=== PATIENT | male | born 1945 | race Hispanic/Latino ===

== ENCOUNTER 2018-09-18 13:48 | Emergency (ER) | payer OTHER, MEDICARE ==
[2018-09-18 13:57] VITALS: TEMP 100.3; O2SAT 98
[2018-09-18] MEDS ORDERED: Sodium Chloride 0.9% 1,000 ML IV SCH (14:45)
[2018-09-18 15:10] LABS: BASO % 0.4 % (0.0-2.0); EOS % 0.9 % (0.0-4.0); HEMOGLOBIN 8.9 g/dL (12.0-18.0); LYMPH # 0.4 K/uL (1.0-4.3); MEAN CELL VOLUME 70.6 fl (80.0-94.0); MEAN CORPUSCULAR HEMOGLOBIN 22.8 pg (27.0-31.0); MEAN CORPUSCULAR HGB CONC 32.4 g/dL (33.0-37.0); MEAN PLATELET VOLUME 10.6 fl (7.2-11.7); MONO # 0.4 K/uL (0.0-0.8); MONO % 10.1 % (0.0-10.0); NEUT # 3.2 K/uL (1.8-7.0); NEUT % 78.6 % (50.0-75.0); NRBC % 0.6 % (0.0-0.0); RBC 3.92 Mil/uL (4.40-5.90); RED CELL DISTRIBUTION WIDTH 18.8 % (11.5-14.5); WHITE BLOOD COUNT 4.1 K/uL (4.8-10.8)
[2018-09-18 15:18] LABS: ALB/GLOB RATIO 1.1 (1.0-2.1); ALBUMIN 3.7 g/dL (3.5-5.0); BLOOD UREA NITROGEN 24 mg/dl (9-20); CALCIUM 8.8 mg/dL (8.4-10.2); GFR NON-AFRICAN AMERICAN > 60
[2018-09-18 15:36] LABS: ALT/SGPT 50 U/L (21-72); AST/SGOT 80 U/L (17-59)
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
[2018-09-18 17:41] VITALS: BP 136/72; PULSE 74; RESP 20
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
--- NOTE | 2018-09-19 22:06 | CARD ---
APPROVED REPORT Date of service: 09/18/2018 EKG Measurement Heart [id number] <Conclusion> Normal sinus rhythm with sinus arrhythmia Left axis deviation Left ventricular hypertrophy with QRS widening Cannot rule out Septal infarct, age undetermined Abnormal ECG
== END 2018-09-18 18:09 | disposition home or self-care (01) ==
LOC: H.ER 13:48
DX: R42 Dizziness and giddiness (principal); E11.9 Type 2 diabetes mellitus without complications; F17.200 Nicotine dependence, unspecified, uncomplicated; I10 Essential (primary) hypertension; J44.9 Chronic obstructive pulmonary disease, unspecified; V43.52XA Car driver injured in collision with other type car in traffic accident, initial encounter; Y93.9 Activity, unspecified; Y92.89 Other specified places as the place of occurrence of the external cause
CPT/HCPCS: 70450; 80053; 82948; 84484; 85025; 93005; 99285; J7030

== ENCOUNTER 2018-09-21 00:19 | Inpatient (IN) | payer MEDICARE, SELFPAY ==
[2018-09-21] MEDS ORDERED: Iohexol 240 (50 ml) PO ONE (00:58)
[2018-09-21] MEDS ORDERED: Sodium Chloride 0.9% 1,000 ML IV STA (00:58)
--- NOTE | 2018-09-21 01:03 | ED PDOC ---
HPI: Abdomen Time Seen by Provider: 09/21/18 00:44 Chief Complaint (Nursing): Abdominal Pain Chief Complaint (Provider): diarrhea History Per: Patient History/Exam Limitations: no limitations Onset/Duration Of Symptoms: Days (4) Current Symptoms Are (Timing): Still Present Location Of Pain/Discomfort: LLQ, Suprapubic Quality Of Discomfort: Cramping Additional Complaint(s): 73 y/o male brought in by EMS for evaluation of persistent diarrhea x 4 days. Associated lower abdominal cramping. Patient states he has 7-10 watery bowel movements daily. Patient states he was evaluated in ED for same on Thursday and has not been feeling any better since. Patient also reports ongoing generalized weakness, fatigue, and dizziness; states he was recently diagnosed with Thalasemia anemia which required a blood transfusion 1 month ago. Denies headache, extremity numbness/weakness, vision changes, chest pain, shortness of breath, palpitations, urinary symptoms. Past Medical History Reviewed: Historical Data, Nursing Documentation, Vital Signs Vital Signs: Last Vital Signs Temp 99.1 F 09/21/18 00:36 Pulse 80 09/21/18 00:36 Resp 15 09/21/18 00:36 BP 152/80 H 09/21/18 00:36 Pulse Ox 95 09/21/18 00:36 - Medical History PMH: Anemia, CAD, COPD, Diabetes, HTN, Hypercholesterolemia Denies: HIV, Chronic Kidney Disease - Surgical History Surgical History: Appendectomy (2004), Coronary Stent - Family History Family History: States: Unknown Family Hx - Home Medications Home Medications: Ambulatory Orders Medication Instructions Recorded Folic Acid/Multivit-Min/Lutein 1 tab PO DAILY 08/21/16 [Multi-Vitamin Gummies] Simvastatin [Zocor] 20 mg PO HS 08/21/16 Sitagliptin Phos/Metformin HCl 1 tab PO BID 08/21/16 [Janumet 50-1,000 mg Tablet] Tamsulosin [Flomax] 0.4 mg PO DAILY 08/21/16 Umeclidinium Brm/Vilanterol Tr 1 puff IH DAILY 08/21/16 [Anoro Ellipta 62.5-25 Mcg INH] Ursodiol [Keon Forte] 500 mg PO HS 08/21/16 Insulin Glargine, Recombina 30 unit SC HS #1 unit 01/16/17 [Lantus] Insulin Lispro [Humalog (Insulin 10 unit SC BID #1 cartridge 01/16/17 Lispro)] Lisinopril [Prinivil] 20 mg PO DAILY #30 tablet 01/16/17 Aspirin 325 mg PO PRN PRN 09/21/18 Folic Acid 1 mg PO DAILY 09/21/18 Omeprazole 40 mg PO DAILY 09/21/18 - Allergies Allergies/Adverse Reactions: Allergies Allergy/AdvReac Type Severity Reaction Status Date / Time No Known Allergies Allergy Verified 09/21/18 00:43 Review of Systems ROS Statement: Except As Marked, All Systems Reviewed And Found Negative Gastrointestinal: Positive for: Abdominal Pain, Diarrhea Neurological: Positive for: Dizziness Physical Exam - Reviewed Nursing Documentation Reviewed: Yes Vital Signs Reviewed: Yes - Physical Exam Appears: Positive for: Well, Non-toxic, No Acute Distress Head Exam: Positive for: ATRAUMATIC, NORMAL INSPECTION, NORMOCEPHALIC Skin: Positive for: Normal Color Eye Exam: Positive for: Normal appearance ENT: Positive for: Normal ENT Inspection Cardiovascular/Chest: Positive for: Regular Rate, Rhythm Respiratory: Positive for: Normal Breath Sounds Gastrointestinal/Abdominal: Positive for: Normal Exam Back: Positive for: Normal Inspection Extremity: Positive for: Normal ROM Neurologic/Psych: Positive for: Alert, Oriented (x3) - Laboratory Results Result Diagrams: 09/21/18 02:00 09/21/18 02:00 - ECG ECG: Positive for: Viewed By Me (reviewed by ED attending) ECG Rhythm: Positive for: Sinus Rhythm O2 Sat by Pulse Oximetry: 95 - Progress ED Course And Treament: -cbc -cmp -urinalysis -CT abd/pelvis -IV NS bolus -PO bentyl CT SCAN OF THE ABDOMEN AND PELVIS WITH CONTRAST. CLINICAL HISTORY: Abdominal pain. TECHNIQUE: Multiple axial and coronal CT images were obtained through the abdomen and pelvis after administration of intravenous contrast material. COMPARISON: 08/17/2018. COMMENTS: Bilateral basilar subsegmental atelectatic pulmonary changes. Mild sliding hiatal hernia. Diffuse irregularity of the hepatic contour suggestive of chronic parenchymal liver disease, unchanged. Distended gallbladder. Mild ascites, unchanged. Bilateral fat containing inguinal hernias without incarceration. Left renal simple cysts are noted the largest measuring 2.6 cm. Interval appearance of diffuse thickening of the colon. Findings are suggestive of uncomplicated colitis. No perforators or pneumatosis coli. This was not present on prior exam. There is no intra or extrahepatic biliary ductal dilatation. The spleen is normal. The gallbladder is within normal limits. The pancreas is of normal contour and attenuation characteristics. There is no evidence of adrenal mass. Both kidneys demonstrate prompt and equal nephrograms. The kidneys are normal in size, shape and configuration. There is no evidence of renal or ureteral mass. No renal or ureteral calculi are identified. There is no hydroureter or hyd ronephrosis. No evidence for appendicitis. No evidence for small or large bowel obstruction. There is no evidence of intrinsic or extrinsic bladder mass. Images of the lung bases show no evidence of pleural or parenchymal mass. There are no pleural effusions. The bony structures are free of lytic or blastic lesions. IMPRESSION: Bilateral basilar subsegmental atelectatic pulmonary changes. Mild sliding hiatal hernia. Diffuse irregularity of the hepatic contour suggestive of chronic parenchymal liver disease, unchanged. Distended gallbladder. Mild ascites, unchanged. Bilateral fat containing inguinal hernias without incarceration. Left renal simple cysts are noted the largest measuring 2.6 cm. Interval appearance of diffuse thickening of the colon. Findings are suggestive of uncomplicated colitis. No perforators or pneumatosis coli. This was not present on prior exam. Thank you for your kind referral of this patient. Patient with multiple episodes of diarrhea in ED IV cipro, IV flagyl ordered Case discussed with Dr. Tompkins, hospitalist on-call, for admission Disposition - Clinical Impression Clinical Impression: Dehydration, Colitis - Patient ED Disposition Is Patient to be Admitted: Yes - Disposition Disposition Time: 05:37 Condition: FAIR
[2018-09-21] MEDS ORDERED: Iohexol 240 (50 ml) ONE (01:41)
[2018-09-21 02:27] LABS: BASO % 0.5 % (0.0-2.0); EOS % 0.6 % (0.0-4.0); HEMOGLOBIN 8.6 g/dL (12.0-18.0); LYMPH # 0.7 K/uL (1.0-4.3); LYMPH % 13.1 % (20.0-40.0); MEAN CELL VOLUME 70.6 fl (80.0-94.0); MEAN CORPUSCULAR HEMOGLOBIN 23.2 pg (27.0-31.0); MEAN CORPUSCULAR HGB CONC 32.8 g/dL (33.0-37.0); MEAN PLATELET VOLUME 9.6 fl (7.2-11.7); MONO # 1.1 K/uL (0.0-0.8); MONO % 19.2 % (0.0-10.0); NEUT # 3.8 K/uL (1.8-7.0); NEUT % 66.6 % (50.0-75.0); NRBC % 0.6 % (0.0-0.0); RBC 3.69 Mil/uL (4.40-5.90); RED CELL DISTRIBUTION WIDTH 17.7 % (11.5-14.5); WHITE BLOOD COUNT 5.6 K/uL (4.8-10.8)
[2018-09-21 02:34] LABS: ALB/GLOB RATIO 1.2 (1.0-2.1); ALBUMIN 3.7 g/dL (3.5-5.0); ALT/SGPT 49 U/L (21-72); AST/SGOT 52 U/L (17-59); BLOOD UREA NITROGEN 17 mg/dl (9-20); GFR NON-AFRICAN AMERICAN > 60
[2018-09-21] MEDS ORDERED: Iohexol 300 100 ML IJ ONE (03:32)
[2018-09-21] MEDS ORDERED: Sodium Chloride 0.9% 50 ML IV ONE (03:33)
[2018-09-21] MEDS ORDERED: metroNIDAZOLE 500mg/100ml NS 100 ML IV STA (05:06)
[2018-09-21] MEDS ORDERED: Ciprofloxacin 400mg/200ml D5W 400 MG/200 ML BAG IV STA (05:06)
[2018-09-21] MEDS ORDERED: metroNIDAZOLE 500mg/100ml NS 100 ML IVPB ONE (05:25)
--- NOTE | 2018-09-21 06:03 | CP.PCM.HP ---
<Sultan Tera - Last Filed: 09/21/18 07:00> History of Present Illness - History of Present Illness History of Present Illness: CC: Diarrhea HPI: 73 year old male with pmhx of DMII, CAD, HTN, HLD and Thalassemia presents to [facility] with complaints of 9-10 episodes of watery diarrhea associated with lower abdominal cramp since 09/17/18. Denies seeing any blood or mucus in stool. Patient reports he ate reheated sausage on Thursday and contributing his diarrhea to the food. Patient does reports feeling tired , weak and dizzy. Denies nausea, vomiting, fever, chills, , dysuria, chest pain or dyspnea. Denies any recent abx use. Denies any recent trip outside of the country or sick con tact. Of note, patient was recently diagnosed with Thalassemia and has blood transfusion about a month ago. PMD: Dr. Siegel PMHx: CAD, HTN, DM, HLD, BPH PSHx: Coronary artery stent, Appendectomy in 2004 Family hx: Thalasemia and Diabetes in brothers Social hx: Quit drinking 20 years ago, denies, smoking and recreational drug use Medications: reviewed Allergy: NKDA. Present on Admission - Present on Admission Any Indicators Present on Admission: No Review of Systems - Review of Systems Review of Systems: All 12 systems reviewed and negative except as mentioned in HPI Past Patient History - Infectious Disease Hx of Infectious Diseases: None - Past Medical History & Family History Past Medical History?: Yes - Past Social History Smoking Status: Former Smoker - CARDIAC Hx Hypercholesterolemia: Yes Hx Hypertension: Yes - PULMONARY Hx Chronic Obstructive Pulmonary Disease (COPD): Yes - NEUROLOGICAL Hx Neurological Disorder: Yes - HEENT Hx HEENT Problems: No - RENAL Hx Chronic Kidney Disease: No - ENDOCRINE/METABOLIC Hx Endocrine Disorders: Yes Hx Diabetes Mellitus Type 2: Yes - HEMATOLOGICAL/ONCOLOGICAL Hx Anemia: Yes Hx Human Immunodeficiency Virus (HIV): No - INTEGUMENTARY Hx Dermatological Problems: No - MUSCULOSKELETAL/RHEUMATOLOGICAL Hx Falls: No - GASTROINTESTINAL Hx Gastrointestinal Disorders: Yes Hx Fatty Liver Disease: Yes Hx Gastritis: Yes - GENITOURINARY/GYNECOLOGICAL Hx Genitourinary Disorders: Yes Hx Prostate Problems: Yes - PSYCHIATRIC Hx Substance Use: No - SURGICAL HISTORY Hx Appendectomy: Yes (2004) Hx Coronary Stent: Yes - ANESTHESIA Hx Anesthesia: Yes Hx Anesthesia Reactions: No Hx Malignant Hyperthermia: No Meds Allergies/Adverse Reactions: Allergies Allergy/AdvReac Type Severity Reaction Status Date / Time No Known Allergies Allergy Verified 09/21/18 00:43 Physical Exam - Constitutional Appears: No Acute Distress, Unkempt - Head Exam Head Exam: ATRAUMATIC, NORMAL INSPECTION, NORMOCEPHALIC - Eye Exam Eye Exam: EOMI, Normal appearance, PERRL - ENT Exam ENT Exam: Mucous Membranes Dry - Neck Exam Neck exam: Positive for: Full Rom, Normal Inspection. Negative for: Meningismus - Respiratory Exam Respiratory Exam: Clear to Auscultation Bilateral, NORMAL BREATHING PATTERN. absent: Rhonchi, Wheezes - Cardiovascular Exam Cardiovascular Exam: REGULAR RHYTHM, RRR, +S1, +S2 - GI/Abdominal Exam GI & Abdominal Exam: Normal Bowel Sounds, Soft. absent: Guarding, Rebound, Rigid, Tenderness - Extremities Exam Extremities exam: Positive for: normal inspection, pedal pulses present. Negative for: calf tenderness - Back Exam Back exam: absent: CVA tenderness (L), CVA tenderness (R) - Neurological Exam Neurological exam: Alert, CN II-XII Intact, Oriented x3 - Psychiatric Exam Psychiatric exam: Normal Affect, Normal Mood - Skin Skin Exam: Dry, Normal Color, Warm Results - Vital Signs Recent Vital Signs: Last Vital Signs Temp 99.1 F 09/21/18 04:07 Pulse 81 09/21/18 04:07 Resp 18 09/21/18 04:07 BP 130/73 09/21/18 04:07 Pulse Ox 95 09/21/18 05:40 - Labs Result Diagrams: 09/21/18 02:00 09/21/18 02:00 Labs: Laboratory Results - last 24 hr 09/21/18 09/21/18 09/21/18 01:22 02:00 02:00 WBC 5.6 RBC 3.69 L Hgb 8.6 L Hct 26.1 L MCV 70.6 L MCH 23.2 L MCHC 32.8 L RDW 17.7 H Plt Count 174 MPV 9.6 Neut % (Auto) 66.6 Lymph % (Auto) 13.1 L [place] % (Auto) 19.2 H Eos % (Auto) 0.6 Baso % (Auto) 0.5 Neut # (Auto) 3.8 Lymph # (Auto) 0.7 L [place] # (Auto) 1.1 H Eos # (Auto) 0.0 Baso # (Auto) 0.0 Sodium 136 Potassium 3.6 Chloride 106 Carbon Dioxide 18 L Anion Gap 16 BUN 17 Creatinine 0.9 Est GFR ( Amer) > 60 Est GFR (Non-Af Amer) > 60 POC Glucose (mg/dL) 116 H Random Glucose 99 Calcium 9.0 Total Bilirubin 2.1 H AST 52 ALT 49 Alkaline Phosphatase 81 Total Protein 6.8 Albumin 3.7 Globulin 3.1 Albumin/Globulin Ratio 1.2 Assessment & Plan - Assessment and Plan (Free Text) Assessment: 73 year old male with pmhx of DMII, CAD, HTN, HLD and Thalassemia presents to [facility] with complaints of 9-10 episodes of non-bloody watery diarrhe associated with lower abdominal cramp since 09/17/18. CT of abdomen and pelvis shows mild colitis. Patient is admitted for colitis, dehydration and acute gastroenteritis. Acute gastroenteritis with colitis -Stable vitals, afebrile -wbc 5.6 -CT of abdomen and pelvis: Interval appearance of diffuse thickening of the colon. Findings are suggestive of uncomplicated colitis. No perforators or pneumatosis coli. -Received 1 L bolus IV NS -s/p IV Cipro and Flagyl in ED -NPO -c/w Cipro and Flagyl -IV fluids D5 1/2 NS with KCl 20 meq @125 cc/hr -f/u labs Hx Thalassemia -H&H 8.6/26.1 -f/u CBC Diabetes Mellitus type II -Hold medications Hypertension -c/w Lisinopril 20 mg qd BPH -c/w Flomax 0.4mg PO HS Hyperlipedemia -c/w Simvastatin 20 mg PO HS DVT prophylaxis -Lovenox 40 SC daily Code Status -Full code Plan d/w with Dr. Turner Haley, [id number] <Markel Tompkins - Last Filed: 09/21/18 12:33> Results - Vital Signs Recent Vital Signs: Last Vital Signs Temp 97.8 F 09/21/18 09:40 Pulse 72 09/21/18 09:40 Resp 17 09/21/18 09:40 BP 146/68 09/21/18 09:40 Pulse Ox 96 09/21/18 09:40 - Labs Result Diagrams: 09/21/18 02:00 09/21/18 02:00 Labs: Laboratory Results - last 24 hr 09/21/18 09/21/18 09/21/18 01:22 02:00 02:00 WBC 5.6 RBC 3.69 L Hgb 8.6 L Hct 26.1 L MCV 70.6 L MCH 23.2 L MCHC 32.8 L RDW 17.7 H Plt Count 174 MPV 9.6 Neut % (Auto) 66.6 Lymph % (Auto) 13.1 L [place] % (Auto) 19.2 H Eos % (Auto) 0.6 Baso % (Auto) 0.5 Neut # (Auto) 3.8 Lymph # (Auto) 0.7 L [place] # (Auto) 1.1 H Eos # (Auto) 0.0 Baso # (Auto) 0.0 Sodium 136 Potassium 3.6 Chloride 106 Carbon Dioxide 18 L Anion Gap 16 BUN 17 Creatinine 0.9 Est GFR ( Amer) > 60 Est GFR (Non-Af Amer) > 60 POC Glucose (mg/dL) 116 H Random Glucose 99 Calcium 9.0 Total Bilirubin 2.1 H AST 52 ALT 49 Alkaline Phosphatase 81 Total Protein 6.8 Albumin 3.7 Globulin 3.1 Albumin/Globulin Ratio 1.2 C. difficile Ag & Toxin 09/21/18 09:32 WBC RBC Hgb Hct MCV MCH MCHC RDW Plt Count MPV Neut % (Auto) Lymph % (Auto) [place] % (Auto) Eos % (Auto) Baso % (Auto) Neut # (Auto) Lymph # (Auto) [place] # (Auto) Eos # (Auto) Baso # (Auto) Sodium Potassium Chloride Carbon Dioxide Anion Gap BUN Creatinine Est GFR ( Amer) Est GFR (Non-Af Amer) POC Glucose (mg/dL) Random Glucose Calcium Total Bilirubin AST ALT Alkaline Phosphatase Total Protein Albumin Globulin Albumin/Globulin Ratio C. difficile Ag & Toxin Negative Attending/Attestation - Attestation I have personally seen and examined this patient.: Yes I have fully participated in the care of the patient.: Yes I have reviewed all pertinent clinical information: Yes Notes (Text): 09/21/18 12:12 I saw, examined and discussed this patient with Dr Haley. I agree with the assessment and plan as outlined above. This is a 73 years old male who comes with 4 days of diarrhea with crampy abdominal pains. he reports 9-10 bowel movement daily and in the ED he had approximately 10 bowel movements. The C. difficile toxins and antigen are negative. The CT abdomen showed uncomplicated colitis. Stool culture is pending. We will treat the patient for Colitis with diarrhea and Dehydration. He was started IV Fluids, Flagyl and Ciprofloxacin. Follow hemoglobin and transfuse if less than 7gm. treat hypertension and Diabe nathan. Hold Metformin because of recent use of CT dye Markel Tompkins MD
[2018-09-21] MEDS ORDERED: Potassium Ch 20mEq in D5-1/2NS 1,000 ML IV SCH (06:15)
[2018-09-21] MEDS: Potassium Chl 20 mEq in D5-NS 1,000 ML IV SCH ×4 (07:04→22:45)
[2018-09-21] MEDS ORDERED: Ciprofloxacin 400mg/200ml D5W 400 MG/200 ML BAG IVPB ONE (07:04)
--- NOTE | 2018-09-21 07:57 | CARD ---
APPROVED REPORT Date of service: 09/21/2018 EKG Measurement Heart [id number] <Conclusion> Sinus rhythm with marked sinus arrhythmia Left axis deviation Left ventricular hypertrophy with QRS widening and repolarization abnormality Abnormal ECG
[2018-09-21] MEDS: metroNIDAZOLE 500mg/100ml NS 100 ML IVPB SCH ×2 (08:58→16:29)
[2018-09-21] MEDS: Ciprofloxacin 400mg/200ml D5W 400 MG/200 ML BAG IVPB SCH ×2 (08:58→22:07)
[2018-09-21] MEDS ORDERED: Patient's Own Med (Umeclidinium Brm/Vilanterol Tr [Anoro Ellipta 62.5-25 Mcg Inh] 1 PUFF) IH SCH (09:00)
[2018-09-21] MEDS: Insulin Lispro (humaLOG) 100 Units/ml Inj SC SCH ×4 (10:41→22:09)
[2018-09-21] MEDS: Pantoprazole 40 mg EC Tab PO SCH (12:12)
[2018-09-21] MEDS: Enoxaparin 40 mg Syringe SC SCH (12:12)
[2018-09-21] MEDS: Saccharomyces Boulardi 250 mg Cap PO SCH ×2 (12:13→16:29)
--- NOTE | 2018-09-21 12:54 | RAD ---
Date of service: 09/21/2018 HISTORY: admit COMPARISON: 01/12/2017 FINDINGS: LUNGS: No active pulmonary disease. PLEURA: No significant pleural effusion identified, no pneumothorax apparent. CARDIOVASCULAR: No atherosclerotic calcification present No radiographic findings to suggest acute or significant cardiovascular disease. OSSEOUS STRUCTURES: No significant abnormalities. VISUALIZED UPPER ABDOMEN: Normal. OTHER FINDINGS: None. IMPRESSION: No active disease. No significant interval change compared to the prior examination(s).
--- NOTE | 2018-09-21 14:30 | CT ---
Date of service: 09/21/2018 PROCEDURE: CT Abdomen and Pelvis with contrast HISTORY: abd pain, diarrhea COMPARISON: 08/17/2018 TECHNIQUE: Intravenous contrast dose: 95 cc Omnipaque 300 Radiation dose: Total exam DLP = 691.41 mGy-cm. This CT exam was performed using one or more of the following dose reduction techniques: Automated exposure control, adjustment of the mA and/or kV according to patient size, and/or use of iterative reconstruction technique. FINDINGS: LOWER THORAX: Unremarkable. LIVER: Hepatomegaly. Cirrhotic appearing liver without focal abnormality. Patent portal venous system is satisfactorily visualized without evidence portal vein thrombosis. Dilated portal veins in the abdomen and in particular left upper quadrant suggest portal venous hypertension. GALLBLADDER AND BILE DUCTS: Markedly distended gallbladder without visible gallstones. PANCREAS: Unremarkable. No gross lesion or ductal dilatation. SPLEEN: Stable splenomegaly. Orthogonal measurements on coronal series 7 0.5 x 19.2 cm. ADRENALS: Unremarkable. No mass. KIDNEYS AND URETERS: Unremarkable. No hydronephrosis. No solid mass. Stable simple cysts left kidney VASCULATURE: Atherosclerotic calcification and mural plaque present. Findings are seen throughout the aorta BOWEL: Severe and acute lane colitis. APPENDIX: No abnormalities to suggest acute appendicitis. No right lower quadrant inflammatory processes identified. PERITONEUM: Low volume abdominal and pelvic ascites. Fluid also tracks into the right inguinal canal. No free air. LYMPH NODES: Unremarkable. No enlarged lymph nodes. BLADDER: Unremarkable. REPRODUCTIVE: Unremarkable. BONES: No acute fracture. OTHER FINDINGS: Left inguinal hernia larger than right containing fat and mesentery associated with the adjacent sigmoid colon. IMPRESSION: Acute pain colitis. Stable hepatosplenomegaly, cirrhotic findings. Low volume ascites is stable. Markedly distended gallbladder without gallstones. Concordant results (preliminary interpretation) provided by [employer]. Procedure Completed: 03:54. Preliminary Report: Dictated and Authenticated: Five 02:00. Final Interpretation: 14:25.
[2018-09-21 15:08] LABS: URINE CLARITY SLIGHT-CLOUDY (Clear); URINE COLOR YELLOW (YELLOW); URINE GLUCOSE (UA) NEGATIVE (Normal)
[2018-09-21 15:09] LABS: URINE BILIRUBIN NEGATIVE (NEGATIVE); URINE BLOOD SMALL (NEGATIVE); URINE LEUKOCYTE ESTERASE NEGATIVE Leu/uL (Negative); URINE PROTEIN NEGATIVE (NEGATIVE); URINE UROBILINOGEN 0.2-1.0 mg/dL (0.2-1.0)
[2018-09-21] MEDS ORDERED: Insulin Detemir 100 Units/ml Inj SC SCH (22:00)
[2018-09-22] MEDS: metroNIDAZOLE 500mg/100ml NS 100 ML IVPB SCH ×3 (00:57→16:14)
[2018-09-22 06:25] LABS: HEMOGLOBIN 8.2 g/dL (12.0-18.0); MEAN CORPUSCULAR HEMOGLOBIN 22.9 pg (27.0-31.0); MEAN CORPUSCULAR HGB CONC 33.7 g/dL (33.0-37.0); RBC 3.56 Mil/uL (4.40-5.90); RED CELL DISTRIBUTION WIDTH 17.9 % (11.5-14.5); WHITE BLOOD COUNT 6.2 K/uL (4.8-10.8)
[2018-09-22 06:52] LABS: ALB/GLOB RATIO 1.1 (1.0-2.1); ALBUMIN 3.1 g/dL (3.5-5.0); ALT/SGPT 44 U/L (21-72); AST/SGOT 45 U/L (17-59); BLOOD UREA NITROGEN 10 mg/dl (9-20); CALCIUM 8.4 mg/dL (8.4-10.2); GFR NON-AFRICAN AMERICAN > 60
[2018-09-22] MEDS ORDERED: Potassium Chloride 20 mEq ER Tab PO ONE (07:52)
[2018-09-22] MEDS: Ciprofloxacin 400mg/200ml D5W 400 MG/200 ML BAG IVPB SCH ×2 (08:20→21:13)
[2018-09-22] MEDS: Pantoprazole 40 mg EC Tab PO SCH (08:21)
[2018-09-22] MEDS: Saccharomyces Boulardi 250 mg Cap PO SCH ×2 (08:21→16:15)
[2018-09-22] MEDS: Enoxaparin 40 mg Syringe SC SCH (08:21)
[2018-09-22] MEDS: Insulin Lispro (humaLOG) 100 Units/ml Inj SC SCH ×4 (08:22→22:00)
--- NOTE | 2018-09-22 09:51 | CP.PCM.PN ---
<Duran Alicea - Last Filed: 09/22/18 12:46> Subjective - Date & Time of Evaluation Date of Evaluation: 09/22/18 Time of Evaluation: 08:15 - Subjective Subjective: Pt seen and examined at bedside. Tolerating clear liquid diet. reports hunger. Reports less stools and more forming. Denies acute overnight events. Objective - Vital Signs/Intake and Output Vital Signs (last 24 hours): Temp Pulse Resp BP Pulse Ox 98.4 F 67 20 126/71 98 09/22/18 09:00 09/22/18 09:00 09/22/18 09:00 09/22/18 09:00 09/22/18 09:00 - Medications Medications: Current Medications Acetaminophen (Tylenol 325mg Tab) 650 mg PO Q6 PRN PRN Reason: Pain, moderate (4-7) Atorvastatin Calcium (Lipitor) 10 mg PO [facility] Last Admin: 09/21/18 22:08 Dose: 10 mg Dicyclomine HCl (Bentyl) 20 mg PO QID [facility] Last Admin: 09/22/18 08:22 Dose: 20 mg Enoxaparin Sodium (Lovenox) 40 mg SC DAILY [facility]; Protocol Last Admin: 09/22/18 08:21 Dose: 40 mg Folic Acid (Folic Acid) 1 mg PO DAILY [facility] Last Admin: 09/22/18 08:22 Dose: 1 mg Home Med (Umeclidinium Brm/Vilanterol Tr [Anoro Ellipta 62.5-25 Mcg Inh]) 1 puff IH DAILY [facility] Home Med (Ursodiol [Keon Forte]) 500 mg PO [facility] Last Admin: 09/21/18 22:08 Dose: 500 mg Ciprofloxacin (Cipro 400mg/200ml Dsw) 400 mg in 200 mls @ 200 mls/hr IVPB Q12 [facility]; Protocol Last Admin: 09/22/18 08:20 Dose: 200 mls/hr Metronidazole (Flagyl 500mg/100ml Ns) 100 mls @ 100 mls/hr IVPB Q8 [facility]; Protocol Last Admin: 09/22/18 08:20 Dose: 100 mls/hr Insulin Human Lispro (Humalog) 0 units SC ACHS [facility]; Protocol Last Admin: 09/22/18 08:22 Dose: Not Given Lisinopril (Zestril) 20 mg PO DAILY [facility] Last Admin: 09/22/18 08:21 Dose: 20 mg Pantoprazole Sodium (Protonix Ec Tab) 40 mg PO DAILY [facility] Last Admin: 09/22/18 08:21 Dose: 40 mg Saccharomyces Boulardii (Florastor) 250 mg PO BID [facility] Last Admin: 09/22/18 08:21 Dose: 250 mg Tamsulosin HCl (Flomax) 0.4 mg PO DAILY [facility] Last Admin: 09/22/18 08:21 Dose: 0.4 mg - Labs Labs: 09/22/18 05:45 09/22/18 05:45 - Constitutional Appears: Well, No Acute Distress - Eye Exam Eye Exam: EOMI - ENT Exam ENT Exam: Mucous Membranes Moist - Neck Exam Neck Exam: Full ROM - Respiratory Exam Respiratory Exam: Clear to Ausculation Bilateral, NORMAL BREATHING PATTERN. absent: Wheezes - Cardiovascular Exam Cardiovascular Exam: REGULAR RHYTHM, +S1, +S2 - GI/Abdominal Exam GI & Abdominal Exam: Soft, Normal Bowel Sounds. absent: Tenderness - Neurological Exam Neurological Exam: Alert, Awake, CN II-XII Intact, Oriented x3 - Psychiatric Exam Psychiatric exam: Normal Affect, Normal Mood Assessment and Plan - Assessment and Plan (Free Text) Assessment: 73 year old male with pmhx of DMII, CAD, HTN, HLD and Thalassemia presented to [facility] with complaints of 9-10 episodes of non-bloody watery diarrhea associated with lower abdominal cramp since 09/17/18. CT of abdomen and pelvis shows mild colitis. Patient is admitted for colitis, dehydration and acute gastroenteritis. Plan: Acute gastroenteritis with colitis -Stable vitals, afebrile -wbc 6.2 -CT of abdomen and pelvis: Interval appearance of diffuse thickening of the colon. Findings are suggestive of uncomplicated colitis. No perforators or pneumatosis coli. -Stool: c. diff: negative x2; leuk: negative; -Received 1 L bolus IV NS and D5 1/2 NS with KCl 20 meq @125 cc/hr -c/w Cipro and Flagyl -Pt experiencing less stools, however, more formed -Will start trial of imodium -Clear liquid advanced to bland, soft diet -f/u labs, Stool culture, O &P Hx Thalassemia -H&H 8.6/26.1 > 8.2/24.2 -f/u CBC Diabetes Mellitus type II -Will consider restarting meds if patient tolerates diet Hypertension -c/w Lisinopril 20 mg qd BPH -c/w Flomax 0.4mg PO HS Hyperlipedemia -c/w Simvastatin 20 mg PO HS DVT prophylaxis -Lovenox 40 SC daily PT/OT: -eval and treat Code Status -Full code Plan d/w with Dr. Turner Alicea MD PGY2 <Ranjana Salazar - Last Filed: 09/22/18 17:43> Objective - Vital Signs/Intake and Output Vital Signs (last 24 hours): Temp Pulse Resp BP Pulse Ox 97.8 F 69 18 103/53 L 98 09/22/18 16:27 09/22/18 16:27 09/22/18 16:27 09/22/18 16:27 09/22/18 16:27 - Medications Medications: Current Medications Acetaminophen (Tylenol 325mg Tab) 650 mg PO Q6 PRN PRN Reason: Pain, moderate (4-7) Atorvastatin Calcium (Lipitor) 10 mg PO HS [facility] Last Admin: 09/21/18 22:08 Dose: 10 mg Dicyclomine HCl (Bentyl) 20 mg PO QID [facility] Last Admin: 09/22/18 16:15 Dose: 20 mg Enoxaparin Sodium (Lovenox) 40 mg SC DAILY [facility]; Protocol Last Admin: 09/22/18 08:21 Dose: 40 mg Folic Acid (Folic Acid) 1 mg PO DAILY [facility] Last Admin: 09/22/18 08:22 Dose: 1 mg Home Med (Umeclidinium Brm/Vilanterol Tr [Anoro Ellipta 62.5-25 Mcg Inh]) 1 puff IH DAILY [facility] Home Med (Ursodiol [Keon Forte]) 500 mg PO HS [facility] Last Admin: 09/21/18 22:08 Dose: 500 mg Ciprofloxacin (Cipro 400mg/200ml Dsw) 400 mg in 200 mls @ 200 mls/hr IVPB Q12 [facility]; Protocol Last Admin: 09/22/18 08:20 Dose: 200 mls/hr Metronidazole (Flagyl 500mg/100ml Ns) 100 mls @ 100 mls/hr IVPB Q8 [facility]; Protocol Last Admin: 09/22/18 16:14 Dose: 100 mls/hr Insulin Detemir (Levemir) 10 units SC [facility] Insulin Human Lispro (Humalog) 0 units SC [facility]; Protocol Last Admin: 09/22/18 16:15 Dose: 2 unit Lisinopril (Zestril) 20 mg PO DAILY [facility] Last Admin: 09/22/18 08:21 Dose: 20 mg Loperamide HCl (Imodium) 2 mg PO Q6 PRN PRN Reason: Diarrhea Last Admin: 09/22/18 16:14 Dose: 2 mg Pantoprazole Sodium (Protonix Ec Tab) 40 mg PO DAILY [facility] Last Admin: 09/22/18 08:21 Dose: 40 mg Saccharomyces Boulardii (Florastor) 250 mg PO BID [facility] Last Admin: 09/22/18 16:15 Dose: 250 mg Tamsulosin HCl (Flomax) 0.4 mg PO DAILY [facility] Last Admin: 09/22/18 08:21 Dose: 0.4 mg - Labs Labs: 09/22/18 05:45 09/22/18 05:45 Attending/Attestation - Attestation I have personally seen and examined this patient.: Yes I have fully participated in the care of the patient.: Yes I have reviewed all pertinent clinical information, including history, physical exam and plan: Yes Notes (Text): Acute Gastroenteritis/Colitis - cont IV Cipro and Flagyl - IVF hydration - still with diarrhea but less frequent and lesser in amount - will start Manquin diet DM Type II -diet started , will start low dose 10 units Levemir ( pt on 30 units at home ) Chronic COPD, stable - restart Anoro ( pt's own med )
[2018-09-22] MEDS ORDERED: Loperamide 1MG/7.5ML UD PO PRN (12:45)
[2018-09-22] MEDS ORDERED: Albuterol-Ipratrop 3 mg / 0.5 (3 ml) UD INH PRN (17:48)
[2018-09-22] MEDS: Sodium Chloride 0.9% 1,000 ML IV SCH (21:00)
[2018-09-22] MEDS: Insulin Detemir 100 Units/ml Inj SC SCH (21:14)
[2018-09-23] MEDS: metroNIDAZOLE 500mg/100ml NS 100 ML IVPB SCH ×3 (00:10→19:18)
[2018-09-23 06:10] LABS: HEMOGLOBIN 7.7 g/dL (12.0-18.0); MEAN CELL VOLUME 68.4 fl (80.0-94.0); MEAN CORPUSCULAR HEMOGLOBIN 22.6 pg (27.0-31.0); MEAN CORPUSCULAR HGB CONC 33.1 g/dL (33.0-37.0); RBC 3.39 Mil/uL (4.40-5.90); RED CELL DISTRIBUTION WIDTH 17.4 % (11.5-14.5)
[2018-09-23 06:44] LABS: BLOOD UREA NITROGEN 14 mg/dl (9-20); CALCIUM 8.1 mg/dL (8.4-10.2); GFR NON-AFRICAN AMERICAN 60
[2018-09-23] MEDS: Enoxaparin 40 mg Syringe SC SCH (08:54)
[2018-09-23] MEDS: Saccharomyces Boulardi 250 mg Cap PO SCH ×2 (08:55→17:29)
[2018-09-23] MEDS: Pantoprazole 40 mg EC Tab PO SCH (08:55)
[2018-09-23] MEDS: Insulin Lispro (humaLOG) 100 Units/ml Inj SC SCH ×4 (08:56→22:21)
[2018-09-23] MEDS: Ciprofloxacin 400mg/200ml D5W 400 MG/200 ML BAG IVPB SCH ×2 (11:06→23:10)
--- NOTE | 2018-09-23 14:44 | CP.PCM.PN ---
Subjective - Date & Time of Evaluation Date of Evaluation: 09/23/18 Time of Evaluation: 08:00 - Subjective Subjective: Pt seen and examined at bedside. Denies acute overnight events. Pt reports 1 bowel movement solid in the past day. Tolerating bland diet. Pt afebrile Objective - Vital Signs/Intake and Output Vital Signs (last 24 hours): Temp Pulse Resp BP Pulse Ox 98.3 F 64 20 123/61 96 09/23/18 08:38 09/23/18 09:02 09/23/18 08:38 09/23/18 09:02 09/23/18 08:38 - Medications Medications: Current Medications Acetaminophen (Tylenol 325mg Tab) 650 mg PO Q6 PRN PRN Reason: Pain, moderate (4-7) Albuterol/Ipratropium (Duoneb 3 Mg/0.5 Mg (3 Ml) Ud) 3 ml INH RQ4 PRN PRN Reason: Shortness of Breath Atorvastatin Calcium (Lipitor) 10 mg PO HS [facility] Last Admin: 09/22/18 21:14 Dose: 10 mg Dicyclomine HCl (Bentyl) 20 mg PO QID [facility] Last Admin: 09/23/18 12:45 Dose: 20 mg Enoxaparin Sodium (Lovenox) 40 mg SC DAILY [facility]; Protocol Last Admin: 09/23/18 08:54 Dose: 40 mg Folic Acid (Folic Acid) 1 mg PO DAILY [facility] Last Admin: 09/23/18 08:55 Dose: 1 mg Home Med (Ursodiol [Keon Forte]) 500 mg PO HS [facility] Last Admin: 09/22/18 21:14 Dose: 500 mg Ciprofloxacin (Cipro 400mg/200ml Dsw) 400 mg in 200 mls @ 200 mls/hr IVPB Q12 [facility]; Protocol Last Admin: 09/23/18 11:06 Dose: 200 mls/hr Metronidazole (Flagyl 500mg/100ml Ns) 100 mls @ 100 mls/hr IVPB Q8 [facility]; Protocol Last Admin: 09/23/18 08:53 Dose: 100 mls/hr Sodium Chloride (Sodium Chloride 0.9%) 1,000 mls @ 100 mls/hr IV .Q10H [facility] Stop: 09/23/18 20:41 Last Admin: 09/22/18 21:00 Dose: 100 mls/hr Insulin Detemir (Levemir) 10 units SC [facility] Last Admin: 09/22/18 21:14 Dose: 10 units Insulin Human Lispro (Humalog) 0 units SC [facility]; Protocol Last Admin: 09/23/18 12:45 Dose: 2 unit Lisinopril (Zestril) 20 mg PO DAILY [facility] Last Admin: 09/23/18 09:02 Dose: 20 mg Loperamide HCl (Imodium) 2 mg PO Q6 PRN PRN Reason: Diarrhea Last Admin: 09/22/18 16:14 Dose: 2 mg Pantoprazole Sodium (Protonix Ec Tab) 40 mg PO DAILY [facility] Last Admin: 09/23/18 08:55 Dose: 40 mg Saccharomyces Boulardii (Florastor) 250 mg PO BID [facility] Last Admin: 09/23/18 08:55 Dose: 250 mg Tamsulosin HCl (Flomax) 0.4 mg PO DAILY [facility] Last Admin: 09/23/18 08:54 Dose: 0.4 mg - Labs Labs: 09/23/18 05:45 09/23/18 05:45 - Constitutional Appears: Well, Non-toxic, No Acute Distress - Eye Exam Eye Exam: EOMI - Neck Exam Neck Exam: Full ROM - Respiratory Exam Respiratory Exam: Clear to Ausculation Bilateral, NORMAL BREATHING PATTERN. absent: Wheezes - Cardiovascular Exam Cardiovascular Exam: REGULAR RHYTHM, +S1, +S2 - GI/Abdominal Exam GI & Abdominal Exam: Soft, Normal Bowel Sounds. absent: Tenderness - Extremities Exam Extremities Exam: absent: Calf Tenderness - Neurological Exam Neurological Exam: Alert, Awake, CN II-XII Intact, Oriented x3 - Psychiatric Exam Psychiatric exam: Normal Affect, Normal Mood Assessment and Plan - Assessment and Plan (Free Text) Assessment: 73 year old male with pmhx of DMII, CAD, HTN, HLD and Thalassemia presented to [facility] with complaints of 9-10 episodes of non-bloody watery diarrhea associated with lower abdominal cramp since 09/17/18. CT of abdomen and pelvis shows mild colitis. Patient is admitted for colitis, dehydration and acute gastroenteritis. Plan: Acute gastroenteritis with colitis -Stable vitals, afebrile -wbc 6.2 -CT of abdomen and pelvis: Interval appearance of diffuse thickening of the colon. Findings are suggestive of uncomplicated colitis. No perforators or pneumatosis coli. -Stool: c. diff: negative x2; leuk: negative; -Received 1 L bolus IV NS and D5 1/2 NS with KCl 20 meq @125 cc/hr -c/w Cipro and Flagyl -Pt experiencing less stools, however, more formed -Will start trial of imodium -Clear liquid advanced to bland, soft diet -f/u labs, Stool culture, O &P Hx Thalassemia -H&H 8.6/26.1 > 8.2/24.2 > 7.7/23.2 -Heme: Dr. Lopez consulted -f/u CBC Anemia -H/H: 7.7/23.2 -Transfuse 2 units PRBC -f/u CBC after transfusion -Consent signed Diabetes Mellitus type II -Restart insulin at 10 U QHS due to diet -accuchecks -sliding scale coverage Hypertension -c/w Lisinopril 20 mg qd BPH -c/w Flomax 0.4mg PO HS Hyperlipedemia -c/w Simvastatin 20 mg PO HS DVT prophylaxis -Lovenox 40 SC daily PT/OT: -eval and treat Code Status -Full code Plan d/w with Dr. Elliot Alicea MD PGY2
[2018-09-23] MEDS: Sodium Chloride 0.9% 1,000 ML IV SCH (16:37)
[2018-09-23] MEDS: Insulin Detemir 100 Units/ml Inj SC SCH (22:25)
[2018-09-24 00:18] VITALS: RESP 20; O2SAT 97
[2018-09-24] MEDS: metroNIDAZOLE 500mg/100ml NS 100 ML IVPB SCH ×2 (01:27→09:11)
[2018-09-24 08:07] LABS: MEAN CORPUSCULAR HEMOGLOBIN 23.1 pg (27.0-31.0); MEAN CORPUSCULAR HGB CONC 32.6 g/dL (33.0-37.0); RBC 3.89 Mil/uL (4.40-5.90); RED CELL DISTRIBUTION WIDTH 19.6 % (11.5-14.5); WHITE BLOOD COUNT 5.8 K/uL (4.8-10.8)
[2018-09-24 08:17] LABS: BLOOD UREA NITROGEN 14 mg/dl (9-20); CALCIUM 8.4 mg/dL (8.4-10.2); GFR NON-AFRICAN AMERICAN > 60
[2018-09-24 08:53] VITALS: BP 123/69; PULSE 61; TEMP 98.1
[2018-09-24] MEDS: Ciprofloxacin 400mg/200ml D5W 400 MG/200 ML BAG IVPB SCH (09:12)
[2018-09-24] MEDS: Saccharomyces Boulardi 250 mg Cap PO SCH (09:14)
[2018-09-24] MEDS: Insulin Lispro (humaLOG) 100 Units/ml Inj SC SCH ×2 (09:14→13:14)
[2018-09-24] MEDS: Enoxaparin 40 mg Syringe SC SCH (09:16)
[2018-09-24] MEDS: Pantoprazole 40 mg EC Tab PO SCH (09:16)
--- NOTE | 2018-09-24 12:02 | CP.PCM.CON ---
History of Present Illness - History of Present Illness History of Present Illness: 73 year old male with a history of CAD, HTN, DM, beta thalassemia trait, admitted with diarrhea and anemia. The patient notes to being recently diagnosed with beta thalassemia trait. He denies abnormal bleeding and bruising. He is taking folic acid daily. Past medical history: CAD, HTN, DM, beta thalassemia train Past surigical history: Appendectomy Family history: Mother had anemia problems Social history: Denies tobacco, alcohol, and illicit drug use. Allergies: NKA Review of systems: All remaining review of systems including HEENT, cardiovascular, respiratory, gastrointestinal, genitourinary, musculoskeletal, d ermatologic, neurologic, and psychiatric are negative unless mentioned in the HPI. Past Patient History - Infectious Disease Hx of Infectious Diseases: None - Past Medical History & Family History Past Medical History?: Yes - Past Social History Smoking Status: Never Smoked - CARDIAC Hx Cardiac Disorders: Yes Hx Hypercholesterolemia: Yes Hx Hypertension: Yes - PULMONARY Hx Respiratory Disorders: Yes Hx Chronic Obstructive Pulmonary Disease (COPD): Yes - NEUROLOGICAL Hx Neurological Disorder: No - HEENT Hx HEENT Problems: No - RENAL Hx Chronic Kidney Disease: No - ENDOCRINE/METABOLIC Hx Endocrine Disorders: Yes Hx Diabetes Mellitus Type 2: Yes - HEMATOLOGICAL/ONCOLOGICAL Hx Blood Disorders: Yes Hx AIDS: No Hx Anemia: Yes (Thalasemia diagnosed this year) Hx Blood Transfusions: Yes Hx Human Immunodeficiency Virus (HIV): No - INTEGUMENTARY Hx Dermatological Problems: No - MUSCULOSKELETAL/RHEUMATOLOGICAL Hx Musculoskeletal Disorders: No Hx Falls: No - GASTROINTESTINAL Hx Gastrointestinal Disorders: Yes Hx Fatty Liver Disease: Yes Hx Gastritis: Yes - GENITOURINARY/GYNECOLOGICAL Hx Genitourinary Disorders: No - PSYCHIATRIC Hx Psychophysiologic Disorder: No Hx Depression: No Hx Substance Use: No - SURGICAL HISTORY Hx Surgeries: Yes Hx Appendectomy: Yes (2004) Hx Coronary Stent: Yes (2004) - ANESTHESIA Hx Anesthesia: Yes Hx Anesthesia Reactions: No Hx Malignant Hyperthermia: No Meds Home Medications: Home Medication List Medication Instructions Recorded Confirmed Type Umeclidinium Brm/Vilanterol Tr 1 each IH DAILY #30 blst.w.dev 09/22/18 Rx [Anoro Ellipta 62.5-25 Mcg INH] Aspirin 325 mg PO PRN PRN #30 tab 09/24/18 Rx Ciprofloxacin [Cipro] 500 mg PO BID #20 tab 09/24/18 Rx Folic Acid 1 mg PO DAILY #30 tab 09/24/18 Rx Folic Acid/Multivit-Min/Lutein 1 tab PO DAILY #30 tab.chew 09/24/18 Rx [Multi-Vitamin Gummies] Lisinopril [Prinivil] 20 mg PO DAILY #30 tablet 09/24/18 Rx Omeprazole 40 mg PO DAILY #30 capsule.dr 09/24/18 Rx Simvastatin [Zocor] 20 mg PO HS #30 tablet 09/24/18 Rx Sitagliptin Phos/Metformin HCl 1 tab PO BID #60 tablet 09/24/18 Rx [Janumet 50-1,000 mg Tablet] Tamsulosin [Flomax] 0.4 mg PO DAILY #30 cap 09/24/18 Rx Ursodiol [Keon Forte] 500 mg PO HS #30 tablet 09/24/18 Rx Allergies/Adverse Reactions: Allergies Allergy/AdvReac Type Severity Reaction Status Date / Time No Known Allergies Allergy Verified 09/21/18 00:43 - Medications Medications: Current Medications Acetaminophen (Tylenol 325mg Tab) 650 mg PO Q6 PRN PRN Reason: Pain, moderate (4-7) Albuterol/Ipratropium (Duoneb 3 Mg/0.5 Mg (3 Ml) Ud) 3 ml INH RQ4 PRN PRN Reason: Shortness of Breath Atorvastatin Calcium (Lipitor) 10 mg PO HS [facility] Last Admin: 09/23/18 22:21 Dose: 10 mg Dicyclomine HCl (Bentyl) 20 mg PO QID [facility] Last Admin: 09/24/18 09:13 Dose: 20 mg Enoxaparin Sodium (Lovenox) 40 mg SC DAILY [facility]; Protocol Last Admin: 09/24/18 09:16 Dose: 40 mg Folic Acid (Folic Acid) 1 mg PO DAILY [facility] Last Admin: 09/24/18 09:14 Dose: 1 mg Home Med (Ursodiol [Keon Forte]) 500 mg PO HS [facility] Last Admin: 09/23/18 22:21 Dose: 500 mg Ciprofloxacin (Cipro 400mg/200ml Dsw) 400 mg in 200 mls @ 200 mls/hr IVPB Q12 [facility]; Protocol Last Admin: 09/24/18 09:12 Dose: 200 mls/hr Metronidazole (Flagyl 500mg/100ml Ns) 100 mls @ 100 mls/hr IVPB Q8 [facility]; Protocol Last Admin: 09/24/18 09:11 Dose: 100 mls/hr Insulin Detemir (Levemir) 10 units SC HS [facility] Last Admin: 09/23/18 22:25 Dose: 10 units Insulin Human Lispro (Humalog) 0 units SC ACHS [facility]; Protocol Last Admin: 09/24/18 09:14 Dose: 1 unit Lisinopril (Zestril) 20 mg PO DAILY [facility] Last Admin: 09/24/18 09:16 Dose: 20 mg Loperamide HCl (Imodium) 2 mg PO Q6 PRN PRN Reason: Diarrhea Last Admin: 09/22/18 16:14 Dose: 2 mg Pantoprazole Sodium (Protonix Ec Tab) 40 mg PO DAILY [facility] Last Admin: 09/24/18 09:16 Dose: 40 mg Saccharomyces Boulardii (Florastor) 250 mg PO BID [facility] Last Admin: 09/24/18 09:14 Dose: 250 mg Tamsulosin HCl (Flomax) 0.4 mg PO DAILY [facility] Last Admin: 09/24/18 09:13 Dose: 0.4 mg Physical Exam - Head Exam Head Exam: ATRAUMATIC - Eye Exam Eye Exam: Normal appearance - ENT Exam ENT Exam: Mucous Membranes Dry - Respiratory Exam Respiratory Exam: NORMAL BREATHING PATTERN - Cardiovascular Exam Cardiovascular Exam: +S1, +S2 - GI/Abdominal Exam GI & Abdominal Exam: Normal Bowel Sounds Results - Vital Signs Recent Vital Signs: Last Vital Signs Temp 98.1 F 09/24/18 08:53 Pulse 61 09/24/18 08:53 Resp 20 09/24/18 08:53 BP 123/69 09/24/18 08:53 Pulse Ox 97 09/24/18 08:53 - Labs Result Diagrams: 09/24/18 07:50 09/24/18 07:50 Labs: Laboratory Results - last 24 hr 09/23/18 09/23/18 09/23/18 12:03 12:14 15:54 WBC RBC Hgb Hct MCV MCH MCHC RDW Plt Count Sodium Potassium Chloride Carbon Dioxide Anion Gap BUN Creatinine Est GFR ( Amer) Est GFR (Non-Af Amer) POC Glucose (mg/dL) 249 H 263 H Random Glucose Calcium Vitamin B12 TSH 3rd Generation Blood Type B POSITIVE Antibody Screen Negative Crossmatch See Detail BBK History Checked Patient has bt 09/23/18 09/24/18 09/24/18 21:13 05:19 07:50 WBC 5.8 RBC 3.89 L Hgb 9.0 L Hct 27.6 L MCV 71.0 L D MCH 23.1 L MCHC 32.6 L RDW 19.6 H Plt Count 188 Sodium Potassium Chloride Carbon Dioxide Anion Gap BUN Creatinine Est GFR ( Amer) Est GFR (Non-Af Amer) POC Glucose (mg/dL) 210 H 151 H Random Glucose Calcium Vitamin B12 TSH 3rd Generation Blood Type Antibody Screen Crossmatch BBK History Checked 09/24/18 07:50 WBC RBC Hgb Hct MCV MCH MCHC RDW Plt Count Sodium 139 Potassium 3.9 Chloride 111 H Carbon Dioxide 19 L Anion Gap 13 BUN 14 Creatinine 1.1 Est GFR ( Amer) > 60 Est GFR (Non-Af Amer) > 60 POC Glucose (mg/dL) Random Glucose 152 H Calcium 8.4 Vitamin B12 930 TSH 3rd Generation 2.14 Blood Type Antibody Screen Crossmatch BBK History Checked Assessment & Plan (1) Chronic anemia Assessment and Plan: retic count, b12, folate, ferritin beta thal trait folic acid daily transfusion support PRN Status: Acute (2) Beta thalassemia trait Assessment and Plan: folic acid daily Thank you for this interesting consult. Status: Acute
[2018-09-24 13:35] VITALS: BMI 29.6
--- NOTE | 2018-09-24 15:40 | CP.PCM.DIS ---
Provider - Provider Date of Admission: 09/21/18 05:08 Attending physician: Markel Tompkins Consults: 09/21/18 09:53 Nursing Referral for Wound Care Routine Comment: Physician Instructions: Reason For Exam: Low swapna score Social Work Referral Routine Comment: Lives alone, discharge planning Physician Instructions: Reason For Exam: Lives alone, discharge planning 09/23/18 13:14 Hematology Oncology Consult Routine Comment: Consulting Provider: Turner Lopez Consulting Physician: Turner Lopez Reason for Consult: Thalassemia trait with anemia Time Spent in preparation of Discharge (in minutes): 30 Hospital Course - Lab Results Lab Results: Micro Results 09/21/18 09:30 Stool Stool Culture - Final Campylobacter Species 09/21/18 09:32 Stool Ova and Parasite Concentrate Exam - Final Most Recent Lab Values WBC 5.8 K/uL (4.8-10.8) 09/24/18 07:50 RBC 3.89 Mil/uL (4.40-5.90) L 09/24/18 07:50 Hgb 9.0 g/dL (12.0-18.0) L 09/24/18 07:50 Hct 27.6 % (35.0-51.0) L 09/24/18 07:50 MCV 71.0 fl (80.0-94.0) L D 09/24/18 07:50 MCH 23.1 pg (27.0-31.0) L 09/24/18 07:50 MCHC 32.6 g/dL (33.0-37.0) L 09/24/18 07:50 RDW 19.6 % (11.5-14.5) H 09/24/18 07:50 Plt Count 188 K/uL (130-400) 09/24/18 07:50 MPV 9.6 fl (7.2-11.7) 09/21/18 02:00 Neut % (Auto) 66.6 % (50.0-75.0) 09/21/18 02:00 Lymph % (Auto) 13.1 % (20.0-40.0) L 09/21/18 02:00 [place] % (Auto) 19.2 % (0.0-10.0) H 09/21/18 02:00 Eos % (Auto) 0.6 % (0.0-4.0) 09/21/18 02:00 Baso % (Auto) 0.5 % (0.0-2.0) 09/21/18 02:00 Neut # (Auto) 3.8 K/uL (1.8-7.0) 09/21/18 02:00 Lymph # (Auto) 0.7 K/uL (1.0-4.3) L 09/21/18 02:00 [place] # (Auto) 1.1 K/uL (0.0-0.8) H 09/21/18 02:00 Eos # (Auto) 0.0 K/uL (0.0-0.7) 09/21/18 02:00 Baso # (Auto) 0.0 K/uL (0.0-0.2) 09/21/18 02:00 Sodium 139 mmol/l (132-148) 09/24/18 07:50 Potassium 3.9 MMOL/L (3.6-5.0) 09/24/18 07:50 Chloride 111 mmol/L (98-107) H 09/24/18 07:50 Carbon Dioxide 19 mmol/L (22-30) L 09/24/18 07:50 Anion Gap 13 (10-20) 09/24/18 07:50 BUN 14 mg/dl (9-20) 09/24/18 07:50 Creatinine 1.1 mg/dl (0.8-1.5) 09/24/18 07:50 Est GFR ( Amer) > 60 09/24/18 07:50 Est GFR (Non-Af Amer) > 60 09/24/18 07:50 POC Glucose (mg/dL) 253 mg/dL (65-110) H 09/24/18 13:09 Random Glucose 152 mg/dL (75-110) H 09/24/18 07:50 Calcium 8.4 mg/dL (8.4-10.2) 09/24/18 07:50 Total Bilirubin 1.6 mg/dl (0.2-1.3) H 09/22/18 05:45 AST 45 U/L (17-59) 09/22/18 05:45 ALT 44 U/L (21-72) 09/22/18 05:45 Alkaline Phosphatase 74 U/L (38-126) 09/22/18 05:45 Total Protein 6.1 G/DL (6.3-8.2) L 09/22/18 05:45 Albumin 3.1 g/dL (3.5-5.0) L 09/22/18 05:45 Globulin 3.0 gm/dL (2.2-3.9) 09/22/18 05:45 Albumin/Globulin Ratio 1.1 (1.0-2.1) 09/22/18 05:45 Vitamin B12 930 pg/mL (239-931) 09/24/18 07:50 TSH 3rd Generation 2.14 mIU/ML (0.46-4.68) 09/24/18 07:50 Urine Color Yellow (YELLOW) 09/21/18 14:48 Urine Clarity Slight-cloudy (Clear) 09/21/18 14:48 Urine pH 6.0 (5.0-8.0) 09/21/18 14:48 Ur Specific [employer] 1.035 (1.003-1.030) H 09/21/18 14:48 Urine Protein Negative mg/dL (NEGATIVE) 09/21/18 14:48 Urine Glucose (UA) Negative mg/dL (Normal) 09/21/18 14:48 Urine Ketones Negative mg/dL (NEGATIVE) 09/21/18 14:48 Urine Blood Small (NEGATIVE) 09/21/18 14:48 Urine Nitrate Negative (NEGATIVE) 09/21/18 14:48 Urine Bilirubin Negative (NEGATIVE) 09/21/18 14:48 Urine Urobilinogen 0.2-1.0 mg/dL (0.2-1.0) 09/21/18 14:48 Ur Leukocyte Esterase Negative Agatha/uL (Negative) 09/21/18 14:48 Urine RBC (Auto) 5 /hpf (0-3) H 09/21/18 14:48 Urine Microscopic WBC 1 /hpf (0-5) 09/21/18 14:48 Stool Leukocytes, Qual Negative (NEGATIVE) 09/21/18 09:32 C. difficile Ag & Toxin Negative (NEGATIVE) 09/21/18 14:48 Blood Type B POSITIVE 09/23/18 12:14 Antibody Screen Negative 09/23/18 12:14 Crossmatch See Detail 09/23/18 12:14 BBK History Checked Patient has bt 09/23/18 12:14 - Hospital Course Hospital Course: 73 year old male with pmhx of DMII, CAD, HTN, HLD and Thalassemia presented to [facility] with complaints of 9-10 episodes of non-bloody watery diarrhea associated with lower abdominal cramp since 09/17/18. CT of abdomen and pelvis shows mild colitis. Patient is admitted for colitis, dehydration and acute gastroenteritis. -CT of abdomen and pelvis: Interval appearance of diffuse thickening of the colon. Findings are suggestive of uncomplicated colitis. No perforators or pneumatosis coli. -Stool: c. diff: negative x2; leuk: negative Acute gastroenteritis with colitis: IVF; abx: Ciprofloxacin and Flagyl; started imodium. Diet advanced to clear liquid and bland diet. Pt diarrhea resolved. Stool O&P: negative; Stool culture: Campylobacter Thalassemia: pt had hemoglobin of 7.7: Transfused 2 units prbc. Pt requested another Vehicle Operator for eval: Dr. Lopez. Discharge home on Ciprofloxacin; Pt offered TCU for further deconditioning, however, declined and requested home services. pt to f/u with pmd in 3-5 days Case d/w Dr. Elliot Alicea MD PGY2 Discharge Exam - Head Exam Head Exam: ATRAUMATIC, NORMAL INSPECTION, NORMOCEPHALIC - Eye Exam Eye Exam: EOMI - ENT Exam ENT Exam: Mucous Membranes Moist - Respiratory Exam Respiratory Exam: Clear to PA & Lateral, NORMAL BREATHING PATTERN. absent: Wheezes - Cardiovascular Exam Cardiovascular Exam: REGULAR RHYTHM, +S1, +S2 - GI/Abdominal Exam GI & Abdominal Exam: Normal Bowel Sounds, Soft. absent: Tenderness - Neurological Exam Neurological exam: Alert, CN II-XII Intact, Oriented x3 - Psychiatric Exam Psychiatric exam: Normal Affect, Normal Mood Discharge Plan - Discharge Medications Prescriptions: Aspirin 325 mg PO PRN PRN #30 tab PRN Reason: Pain, Mild (1-3) Ciprofloxacin [Cipro] 500 mg PO BID #20 tab Folic Acid 1 mg PO DAILY #30 tab Folic Acid/Multivit-Min/Lutein [Multi-Vitamin Gummies] 1 tab PO DAILY #30 tab.chew Lisinopril [Prinivil] 20 mg PO DAILY #30 tablet Omeprazole 40 mg PO DAILY #30 capsule. Simvastatin [Zocor] 20 mg PO HS #30 tablet Sitagliptin Phos/Metformin HCl [Janumet 50-1,000 mg Tablet] 1 tab PO BID #60 tablet Tamsulosin [Flomax] 0.4 mg PO DAILY #30 cap Umeclidinium Brm/Vilanterol Tr [Anoro Ellipta 62.5-25 Mcg INH] 1 each IH DAILY #30 blst.w.dev Ursodiol [Keon Forte] 500 mg PO HS #30 tablet - Follow Up Plan Condition: FAIR Disposition: HOME/ ROUTINE Instructions: Diarrhea in Adolescents and Adults, Dehydration, Adult (DC), Anemia (DC), Dehydration (DC) Additional Instructions: follow up with primary MD 1 week Referrals: Turner Lopez MD [Staff Provider] - Ruddy Hendricks MD [Staff Provider] -
== END 2018-09-24 15:00 | disposition home health service (06) | DRG 392 ==
LOC: H.ER 00:19 → H.ERHOLD 05:08 → H.MEDSURG1 09:20
PROVIDERS: ADMIT Internal Medicine; ATTEND Internal Medicine
PROC: 30233N1 Transfusion of Nonautologous Red Blood Cells into Peripheral Vein, Percutaneous Approach (ICD-10-PCS; principal; 2018-09-23)
DX: K52.9 Noninfective gastroenteritis and colitis, unspecified (principal); R18.8 Other ascites; D56.3 Thalassemia minor; D64.89 Other specified anemias; E11.9 Type 2 diabetes mellitus without complications; E86.0 Dehydration; I25.10 Atherosclerotic heart disease of native coronary artery without angina pectoris; J44.9 Chronic obstructive pulmonary disease, unspecified; I10 Essential (primary) hypertension; E78.5 Hyperlipidemia, unspecified; E78.00 Pure hypercholesterolemia, unspecified; N40.0 Benign prostatic hyperplasia without lower urinary tract symptoms; K40.20 Bilateral inguinal hernia, without obstruction or gangrene, not specified as recurrent; K44.9 Diaphragmatic hernia without obstruction or gangrene; Z79.4 Long term (current) use of insulin; Z95.5 Presence of coronary angioplasty implant and graft; Z87.891 Personal history of nicotine dependence; Z90.49 Acquired absence of other specified parts of digestive tract